=== PATIENT | female | born 1980 | race Caucasian/White ===

== ENCOUNTER 2022-05-20 07:01 | Day surgery (SDC) | payer BC ==
[~2022-05-20] VITALS: Ht 162.6 cm; Wt 75.7 kg
[2022-05-20 07:55] LABS: HCG,QUAL RESULT NEGATIVE (NEGATIVE)
[2022-05-20] MEDS ORDERED: IBUPROFEN 600 MG TABLET PO ONE (11:00)
[2022-05-20] MEDS ORDERED: ONDANSETRON HCL 4 MG/2 ML VIAL IVP PRN (11:00)
[2022-05-20] MEDS ORDERED: HYDROmorphone 1 MG/ML INJ. CARTRIDGE IVP PRN (11:00)
[2022-05-20] MEDS ORDERED: KETOROLAC TROMETHAMINE 30 MG VIAL IVP PRN (11:00)
[2022-05-20] MEDS ORDERED: ONDANSETRON HCL 4 MG/2 ML VIAL IM PRN (11:45)
[2022-05-20] MEDS ORDERED: OXYCODONE/ACETAMINOPHEN 5-325 TABLET PO PRN ×2 (11:45)
[2022-05-20] MEDS ORDERED: IBUPROFEN 800 MG TABLET PO PRN (11:45)
[2022-05-20] MEDS ORDERED: KETOROLAC TROMETHAMINE 30 MG VIAL ONE (11:51)
[2022-05-20] MEDS ORDERED: HYDROmorphone 1 MG/ML INJ. CARTRIDGE ONE (12:04)
[2022-05-20 15:37] VITALS: BP_SYST 107
== END 2022-05-20 14:20 | disposition home or self-care (01) ==
LOC: SDS 07:01 → SMU 07:01 → SDS 14:20
PROVIDERS: ATTEND Obstetrics & Gynecology
DX: N84.0 Polyp of corpus uteri (principal); N84.1 Polyp of cervix uteri; G47.30 Sleep apnea, unspecified; Z20.822 Contact with and (suspected) exposure to COVID-19; Z79.899 Other long term (current) drug therapy
CPT/HCPCS: 36415 ×2; 58558; 84703; 87426; 88305; C1819; J1170; J1885; U0003